=== PATIENT | female | born 1980 | race Caucasian/White ===

== ENCOUNTER → 2017-03-09 | Outpatient (CLI) | payer SELFPAY | LOC: OD 11:52 | PROVIDERS: ATTEND Nurse Practitioner | DX: R63.4 Abnormal weight loss (principal) | CPT/HCPCS: 71020 ==

== ENCOUNTER → 2017-03-26 | Outpatient (CLI) | payer OTHER | LOC: RAD 14:52 | PROVIDERS: ATTEND Nurse Practitioner | DX: R94.6 Abnormal results of thyroid function studies (principal) | CPT/HCPCS: 76536 ==

== ENCOUNTER → 2017-04-17 | Outpatient (CLI) | payer OTHER ==
--- NOTE | 2017-04-17 17:05 | RADIOLOGY REPORT (SQ) ---
EXAM DESCRIPTION: HUMERUS LEFT COMPLETED DATE/TIME: 04/17/2017 4:14 pm REASON FOR STUDY: PAIN IN LEFT UPPER ARM M54.5 LOW BACK PAIN M79.622 PAIN IN LEFT UPPER ARM COMPARISON: None. NUMBER OF VIEWS: Two views. TECHNIQUE: Two radiographic images were acquired of the left humerus to include elbow and shoulder i n at least one projection. LIMITATIONS: None. FINDINGS: MINERALIZATION: Normal. BONES: No acute fracture or dislocation. No worrisome bone lesions. SOFT TISSUES: No obvious swelling or foreign body. OTHER: No other significant finding. IMPRESSION: NEGATIVE STUDY OF THE LEFT HUMERUS. NO RADIOGRAPHIC EVIDENCE OF ACUTE INJURY. TECHNICAL DOCUMENTATION: JOB ID: [id number] [employer]- All Rights Reserved
--- NOTE | 2017-04-17 17:06 | RADIOLOGY REPORT (SQ) ---
EXAM DESCRIPTION: LUMBAR SPINE COMPLETE COMPLETED DATE/TIME: 04/17/2017 4:14 pm REASON FOR STUDY: LOW BACK PAIN M54.5 LOW BACK PAIN M79.622 PAIN IN LEFT UPPER ARM COMPARISON: None. NUMBER OF VIEWS: Five views including obliques. TECHNIQUE: AP, lateral, oblique, and sacral radiographic images acquired of the lumbar spine. LIMITATIONS: None. FINDINGS: MINERALIZATION: Normal. SEGMENTATION: Normal. No transitional anatomy. ALIGNMENT: Normal. VERTEBRAE: Maintained height. No fracture or worrisome bone lesion. DISCS: Preserved height. No significant osteophytes or end plate irregularity. POSTERIOR ELEMENTS: Pedicles and facets are intact. No pars defect or posterior arch defects. HARDWARE: None in the spine. PARASPINAL SOFT TISSUES: Normal. PELVIS: Intact as visualized. No fractures or worrisome bone lesions. SI joints intact. OTHER: No other significant finding. IMPRESSION: NORMAL 5 VIEW LUMBAR SPINE. TECHNICAL DOCUMENTATION: JOB ID: [id number] [employer]- All Rights Reserved
== END ==
LOC: OD 15:37
PROVIDERS: ATTEND Nurse Practitioner
DX: M54.5 Low back pain (principal); M79.622 Pain in left upper arm
CPT/HCPCS: 72110

== ENCOUNTER → 2019-12-08 | Outpatient (CLI) | payer BC ==
--- NOTE | 2019-12-08 10:06 | RADIOLOGY REPORT (SQ) ---
EXAM DESCRIPTION: NM GASTRIC EMPTYING STUDY COMPLETED DATE/TIME: 12/08/2019 8:29 am REASON FOR STUDY: NAUSEA WITH VOMITING, UNSPECIFIED (R11.2) R11.2 NAUSEA WITH VOMITING, UNSPECIFIED COMPARISON: None. RADIONUCLIDE AND DOSE: 2.2 millicuries Tc-99m Sulfur Colloid. Egg salad sandwich The route of agent administration: Oral. TECHNIQUE: See below. LIMITATIONS: None. FINDINGS: The patient was unable to eat the prepared egg salad sandwich. IMPRESSION: Aborted gastric emptying scan as the patient was unable to eat the prepared egg salad sa [facility]. TECHNICAL DOCUMENTATION: JOB ID: [id number] [employer]- All Rights Reserved rev-04/05 Reading location - IP/workstation name: [email or web address]
== END ==
LOC: RAD 07:51
PROVIDERS: ATTEND Internal Medicine Gastroenterology
DX: R11.2 Nausea with vomiting, unspecified (principal)
CPT/HCPCS: 78264; A9541